=== PATIENT | female | born 1980 | race Hispanic/Latino ===

== ENCOUNTER 2018-05-12 09:57 | Emergency (ER) | payer SELFPAY ==
[2018-05-12] MEDS ORDERED: Ondansetron PF 4 MG/2 ML Vial ONE ×2 (10:33→11:53)
[2018-05-12] MEDS ORDERED: Famotidine In NaCl 20 mg/50 ml Premix Bag ONE (10:34)
[2018-05-12 10:35] LABS: #Basophils 0.1 thou/uL (0.0-0.2); #Lymphocytes 1.1 thou/uL (1.20-3.40); #Monocytes 0.3 thou/uL (0.11-0.59); #Neutrophils 11.3 thou/uL (1.40-6.50); %Basophils 0.5 % (0.0-1.0); %Eosinophils 0.1 % (0.0-10.0); %Lymphocytes 8.7 % (21.0-51.0); %Monocytes 2.7 % (0.0-10.0); Hemoglobin 13.8 g/dL (12.0-16.0); Mean Corpuscular HGB CONC 35.1 g/dL (32.0-36.0); Mean Corpuscular Hemoglobin 29.1 pg (27.0-31.0); Mean Corpuscular Volume 82.9 fL (78.0-98.0); Mean Platelet Volume 5.8 fL (7.4-10.4); Platelet Count 352 thou/uL (130-400); RBC Distribution Width 12.5 % (11.5-14.5); Red Blood Cell (RBC) Count 4.75 mill/uL (4.20-5.40); White Blood Cell (WBC) Count 12.9 thou/uL (4.8-10.8)
[2018-05-12 10:56] LABS: ALT (SGPT) 17 U/L (8-55); AST (SGOT) 12 U/L (5-34); Albumin 4.7 g/dL (3.5-5.0); Alkaline Phosphatase 81 U/L (40-150); Anion Gap 18 mmol/L (10-20); BUN (Urea Nitrogen) 11 mg/dL (7.0-18.7); Bilirubin, Total 0.4 mg/dL (0.2-1.2); Calc. Creatinine Clearance 0 mL/min (70-130); Calcium 9.9 mg/dL (7.8-10.44); Carbon Dioxide 22 mmol/L (22-29); Chloride 102 mmol/L (98-107); Estimated GFR-MDRD 80; Globulin 3.2 g/dL (2.4-3.5); Glucose 244 mg/dL (70-105); Lipase 39 U/L (8-78); Potassium 3.6 mmol/L (3.5-5.1); Protein, Total 7.9 g/dL (6.0-8.3); Sodium 138 mmol/L (136-145)
[2018-05-12 11:57] LABS: Clarity Slightly Cloudy (Clear); Leukocyte Negative (Negative); Nitrite Negative (Negative); Protein, Urine (Dipstick) Negative (Neg-Trace); pH, Urine 8.5 (5.0-9.0)
[2018-05-12 11:58] LABS: Bilirubin Negative (Negative); Blood, Urine Negative (Negative); Glucose, Urine (Dipstick) 250 mg/dL (Negative); Urobilinogen 0.2 mg/dL (0.2-1.0)
[2018-05-12] MEDS ORDERED: Promethazine HCl 25 MG/ML VIAL ONE (12:06)
== END 2018-05-12 12:59 | disposition home or self-care (01) ==
LOC: BURERS 09:57
DX: K52.9 Noninfective gastroenteritis and colitis, unspecified (principal); E86.0 Dehydration; E11.9 Type 2 diabetes mellitus without complications; I10 Essential (primary) hypertension; F32.9 Major depressive disorder, single episode, unspecified; F17.210 Nicotine dependence, cigarettes, uncomplicated; Z79.899 Other long term (current) drug therapy
CPT/HCPCS: 80053; 81003; 83690; 85025; 94760; 96365; 96367; 96375; 96376; J2405; J2550

== ENCOUNTER 2019-08-05 13:55 | Emergency (ER) | payer MEDICAID ==
[2019-08-05] MEDS ORDERED: Ketorolac Tromethamine 30 MG/ML VIAL ONE (14:17)
== END 2019-08-05 15:45 | disposition home or self-care (01) ==
LOC: BURERS 13:55
DX: G44.209 Tension-type headache, unspecified, not intractable (principal); M06.9 Rheumatoid arthritis, unspecified; E11.9 Type 2 diabetes mellitus without complications; Z79.4 Long term (current) use of insulin
CPT/HCPCS: 96361; 96374; J1885

== ENCOUNTER 2019-08-13 07:42 | Emergency (ER) | payer MEDICAID ==
[2019-08-13 08:47] LABS: Bilirubin Negative (Negative); Blood, Urine Small (Negative); Clarity Clear (Clear); Glucose, Urine (Dipstick) 100 mg/dL (Negative); Leukocyte Negative (Negative); Nitrite Negative (Negative); Protein, Urine (Dipstick) Negative (Neg-Trace); Urobilinogen 0.2 mg/dL (Less than 2)
[2019-08-13 08:50] LABS: Bacteria/HPF Rare-Few HPF (None Seen); Broad Cast None Seen LPF (None Seen); Calcium Oxalate Crystals None Seen HPF (None Seen); Cellular Cast None Seen LPF (None Seen); Epithelial Cast None Seen LPF (None Seen); Fatty Cast None Seen LPF (None Seen); Mucous/LPF None Seen LPF (<2+); Other Casts None Seen LPF (None Seen); Oval Fat Bodies/HPF None Seen HPF (None Seen); RBC/HPF 0-3 HPF (0-3); Red Blood Cell Cast None Seen LPF (None Seen); Renal Epithelial None Seen HPF (None Seen); Sperm/HPF None Seen HPF (None Seen); Squamous Epithelial 0-3 HPF (0-3); Transitional Epithelial None Seen HPF (None Seen); Trichomonas/HPF None Seen HPF (None Seen); Triple Phosphate Crystal None Seen HPF (None Seen); Unclassified Crystals None Seen HPF (None Seen); WBC/HPF None Seen HPF (0-3); Waxy Cast None Seen LPF (None Seen); White Blood Cell Cast None Seen LPF (None Seen); Yeast-Budding None Seen HPF (None Seen); Yeast-Hyphae None Seen HPF (None Seen)
[2019-08-15 19:45] LABS: Chlamydia by PCR Not Detected (NotDetected); GC by PCR Not Detected (NotDetected)
== END 2019-08-13 09:05 | disposition home or self-care (01) ==
LOC: BURERS 07:42
DX: O20.0 Threatened abortion (principal); O24.911 Unspecified diabetes mellitus in pregnancy, first trimester; O16.1 Unspecified maternal hypertension, first trimester; O99.341 Other mental disorders complicating pregnancy, first trimester; F98.8 Other specified behavioral and emotional disorders with onset usually occurring in childhood and adolescence; Z3A.12 12 weeks gestation of pregnancy; Z79.4 Long term (current) use of insulin; Z79.899 Other long term (current) drug therapy
CPT/HCPCS: 36415; 81003; 81015; 86900; 86901; 87480; 87491; 87510; 87591; 87660; 99284

== ENCOUNTER → 2019-09-03 | Emergency (ER) | payer MEDICAID, SELFPAY ==
[~2019-09-03] MED LIST: Fentanyl 100 MCG/2 ML VIAL ONE; HYDROcodone/Acetaminophen 10/325 mg Tablet ONE; Ondansetron ODT 4 MG TAB ONE
[2019-09-03 13:04] LABS: Bilirubin Negative (Negative); Blood, Urine Trace (Negative); Clarity Clear (Clear); Glucose, Urine (Dipstick) 500 mg/dL (Negative); Leukocyte Negative (Negative); Nitrite Negative (Negative); Protein, Urine (Dipstick) Negative (Neg-Trace); Urobilinogen 0.2 mg/dL (Less than 2)
[2019-09-03 13:11] LABS: Bacteria/HPF Rare-Few HPF (None Seen); RBC/HPF 0-3 HPF (0-3); Squamous Epithelial 0-3 HPF (0-3); WBC/HPF 0-3 HPF (0-3)
[2019-09-05 18:38] LABS: Chlamydia by PCR Not Detected (NotDetected); GC by PCR Not Detected (NotDetected)
== END ==
LOC: BURERS 12:25
DX: O20.0 Threatened abortion (principal); O99.89 Other specified diseases and conditions complicating pregnancy, childbirth and the puerperium; M06.9 Rheumatoid arthritis, unspecified; O24.419 Gestational diabetes mellitus in pregnancy, unspecified control; O10.912 Unspecified pre-existing hypertension complicating pregnancy, second trimester; O99.332 Smoking (tobacco) complicating pregnancy, second trimester; F17.210 Nicotine dependence, cigarettes, uncomplicated; O99.342 Other mental disorders complicating pregnancy, second trimester; F32.9 Major depressive disorder, single episode, unspecified; F98.8 Other specified behavioral and emotional disorders with onset usually occurring in childhood and adolescence; Z3A.15 15 weeks gestation of pregnancy
CPT/HCPCS: 51701; 81003; 81015; 87480; 87491; 87510; 87591; 87660; 96372; A4353; J3010; Q0162

== ENCOUNTER 2020-02-15 14:20 | Emergency (ER) | payer MEDICAID ==
--- NOTE | 2020-02-15 20:18 | CT ---
CT OF THE BRAIN WITHOUT CONTRAST: 02/15/20 The ventricles are normal in size with no shift. No intracranial bleeding, mass or sign of acute stro ke was found. There has been no adverse change since a 04/11/16 study. The skull appears intact and t he visible sinuses are clear. IMPRESSION: No acute intracranial findings. POS: HOME
--- NOTE | 2020-02-15 20:40 | CT ---
CT OF THE CERVICAL SPINE 02/15/[address] of the cervical spine was done following trauma. There is reversal of the normal cervical l ordosis which may be due to muscle spasm. Degenerative changes are quite prominent, rather severe for age, in the mid cervical region. There is disc space narrowing in particular at C5-C6 and C6-C7. The soft tissues are normal in thickness and the C1 to dens distance is normal. Findings by level follow : C1-C2: No acute findings. C2-C3: No acute findings. C3-C4: No acute findings. C4-C5: No acute findings. C5-C6: Uncovertebral osteophytes causing mild left foraminal stenosis and moderate to severe right fo raminal stenosis. C6-C7: Moderate right foraminal stenosis and mild left foraminal stenosis due to uncovertebral osteop hytes. C7-T1: No acute findings. T1-T2: No acute findings. T2-T3: No acute findings. The lung apices are clear. There was no particular soft tissue abnormality in the neck of concern. In cidentally noted are intervertebral pneumocysts at C5 and C6, possibly related to the degenerative ch aletha at these levels. IMPRESSION: 1. Straightening of the cervical spine. 2. Prominent degenerative changes in the mid cervical region. 3. No fracture seen. Reports of brain and C-spine scans called to Dr. Jennings at 1530 on 02/15/20. Code CR POS: HOME
== END 2020-02-15 15:43 | disposition home or self-care (01) ==
LOC: BURERS 14:20
DX: S40.022A Contusion of left upper arm, initial encounter (principal); S50.311A Abrasion of right elbow, initial encounter; M47.892 Other spondylosis, cervical region; E11.9 Type 2 diabetes mellitus without complications; I10 Essential (primary) hypertension; F41.9 Anxiety disorder, unspecified; V43.52XA Car driver injured in collision with other type car in traffic accident, initial encounter; Z79.899 Other long term (current) drug therapy; Z79.4 Long term (current) use of insulin
CPT/HCPCS: 70450; 72125